=== PATIENT | female | born 1950 | race Native Hawaiian/Other Pacific Islander ===

== ENCOUNTER → 2019-06-12 | Outpatient (CLI) | payer MEDICARE, OTHER ==
[~2019-06-12] MED LIST: ALLO100T PO; AMLO10TA7 PO; CEPH250 PO; LOSA25TA41 PO; SIMV-260 PO; VALS40TA4 PO
[2019-06-12 12:30] LABS: CALCIUM, TOTAL 9.5 mg/dL (8.8-10.5); CHOL/HDL RATIO 2.6 (3.9-5.7); CREATININE 0.96 mg/dL (0.60-1.30); POTASSIUM 5.2 mmol/L (3.5-5.1)
[2019-06-12 12:40] LABS: HEMOGLOBIN A1C 5.7 % (4.5-6.2)
[2019-06-12 18:18] LABS: CREATININE,SERUM FOR CRCL 0.96 mg/dL (0.60-1.30)
== END | disposition home or self-care (01) ==
LOC: LABPV 08:22
PROVIDERS: ATTEND Internal Medicine Nephrology
DX: E83.52 Hypercalcemia (principal); N04.1 Nephrotic syndrome with focal and segmental glomerular lesions; R73.03 Prediabetes
CPT/HCPCS: 81050; 82575; 83036; 83970; 84156; 84300

== ENCOUNTER 2022-08-17 11:16 | Emergency (ER) | payer OTHER ==
[~2022-08-17] VITALS: Ht 154.9 cm; Wt 71.8 kg
[~2022-08-17 11:16] MED LIST changes: +ALLO-97 PO; -ALLO100T PO; +AMLO-258 PO; -AMLO10TA7 PO; +CEPH-556 PO; -CEPH250 PO; +LOSA-381 PO; -LOSA25TA41 PO
[2022-08-17 11:35] LABS: COVID AG,FIA SOURCE NASAL SWAB
[2022-08-17 12:06] LABS: INFLUENZA TYPE A NEGATIVE FOR TYPE A (NEGATIVE); INFLUENZA TYPE B NEGATIVE FOR TYPE B (NEGATIVE)
[2022-08-17 13:41] VITALS: BP 157/87
[2022-08-17] MEDS ORDERED: LOSA100T58 PO (13:43)
[2022-08-17] MEDS ORDERED: ALLO300T2 PO (13:43)
[2022-08-17] MEDS ORDERED: ALEN70TA80 PO (13:43)
[2022-08-17] MEDS ORDERED: OXYB5TAB20 PO (13:43)
[2022-08-17] MEDS ORDERED: SIMV10TA97 PO (13:43)
[2022-08-17] MEDS ORDERED: ALBUTEROL SULFATE HFA 90 MCG/PUFF 8 GM INHALER IH ONE (13:45)
== END 2022-08-17 14:01 | disposition home or self-care (01) ==
LOC: EMS 11:21
DX: J40 Bronchitis, not specified as acute or chronic (principal); I10 Essential (primary) hypertension; Z20.822 Contact with and (suspected) exposure to COVID-19
CPT/HCPCS: 71045; 87804; 94640; 99284; J3535

== ENCOUNTER 2022-11-28 12:48 | Emergency (ER) | payer OTHER ==
[~2022-11-28] VITALS: Ht 154.9 cm; Wt 71.8 kg
[~2022-11-28 12:48] MED LIST changes: +ALEN70TA80 PO; -ALLO-97 PO; +ALLO300T2 PO; -CEPH-556 PO; -LOSA-381 PO; +LOSA100T58 PO; +OXYB5TAB20 PO; -SIMV-260 PO; +SIMV10TA97 PO
[2022-11-28 15:01] LABS: BASOPHILS % (AUTO) 0.6 % (0.0-2.0); EOSINOPHILS % (AUTO) 7.3 % (1.0-6.0); HEMATOCRIT 36.5 % (36-46); HEMOGLOBIN 11.7 g/dL (12.0-16.0); LYMPHOCYTES # (AUTO) 2.6 K/uL (1.0-4.8); LYMPHOCYTES % (AUTO) 37.5 % (22.0-44.0); MEAN CORPUSCULAR HEMOGLOBIN 29.2 pg (26.0-34.0); MEAN CORPUSCULAR HGB CONC 31.9 G/dL (31.0-37.0); MEAN CORPUSCULAR VOLUME 92 fL (80-100); MONOCYTES # (AUTO) 0.5 K/uL (0.1-1.0); NEUTROPHILS # (AUTO) 3.3 K/uL (1.8-7.7); NEUTROPHILS % (AUTO) 47.6 % (40.0-70.0); PLATELET COUNT (AUTO) 243 K/uL (150-450); RED BLOOD CELL COUNT(AUTO) 3.99 MIL/uL (4.00-5.20); RED CELL DISTRIBUTION WIDTH 15.5 % (11.5-14.5)
[2022-11-28 15:09] LABS: CALCIUM, TOTAL 9.8 mg/dL (8.8-10.5); CREATININE 1.23 mg/dL (0.60-1.30); POTASSIUM 4.7 mmol/L (3.5-5.1)
[2022-11-28 15:18] LABS: BILIRUBIN,TOTAL 0.3 mg/dL (0.1-1.0); TOTAL PROTEIN, SERUM 8.5 g/dL (6.4-8.2)
[2022-11-28 15:54] LABS: APPEARANCE,URINE CLEAR (CLEAR); BILIRUBIN,URINE NEGATIVE (NEGATIVE); GLUCOSE, URINE (UA) NEGATIVE (NEGATIVE); KETONES,URINE NEGATIVE (NEGATIVE); LEUKOCYTE ESTERASE ,URINE TRACE (NEGATIVE); NITRATE,URINE NEGATIVE (NEGATIVE); OCCULT BLOOD,URINE NEGATIVE (NEGATIVE); PH,URINE 5.5 (5.0-8.0); PROTEIN,URINE TRACE mg/dL (NEGATIVE); SPECIFIC GRAVITIY, URINE 1.006 (1.003-1.030); UROBILINOGEN,URINE <=1.0 mg/dL (<=1.0)
[2022-11-28 16:31] LABS: BACTERIA,URINE Moderate /HPF (None Seen); RBC,URINE None Seen /HPF (0-2); WBC,URINE 0-2 /HPF (0-5)
[2022-11-28] MEDS ORDERED: KETOROLAC TROMETHAMINE 60 MG/2 ML VIAL IM ONE (17:15)
[2022-11-28] MEDS ORDERED: BACLOFEN 10 MG TABLET PO ONE (17:15)
[2022-11-28] MEDS ORDERED: ACETAMINOPHEN/CODEINE 300-30 MG TABLET PO ONE (17:15)
[2022-11-28 20:00] VITALS: BP 128/69
[2022-11-28] MEDS ORDERED: ACET-2080 PO (20:06)
[2022-11-28] MEDS ORDERED: BACL10TA PO (20:06)
[2022-11-28] MEDS ORDERED: IBUP-45 PO (20:06)
== END 2022-11-28 20:26 | disposition home or self-care (01) ==
LOC: EMS 12:48
DX: S39.012A Strain of muscle, fascia and tendon of lower back, initial encounter (principal); I10 Essential (primary) hypertension; X58.XXXA Exposure to other specified factors, initial encounter; Y93.89 Activity, other specified; Y92.89 Other specified places as the place of occurrence of the external cause; Y99.8 Other external cause status
CPT/HCPCS: 99284; 80053; 81001; 85025; 36415; 87086; 87186; 72100; 73503; 96372; J1885

== ENCOUNTER 2024-08-23 19:55 | Emergency (ER) | payer OTHER ==
[~2024-08-23] VITALS: Ht 152.4 cm; Wt 68.2 kg
[~2024-08-23 19:55] MED LIST changes: +ACET-2080 PO; +BACL10TA PO; +IBUP-45 PO; -LOSA100T58 PO; +LOSA100T59 PO
[2024-08-23] MEDS: LIDOCAINE 5% TRANSDERMAL PATCH TD ONE (22:52)
[2024-08-23] MEDS: KETOROLAC TROMETHAMINE 30 MG/ML VIAL IM ONE (22:52)
[2024-08-23 23:00] VITALS: BP 135/68; PULSE 89; RESP 16; TEMP 97.3; O2SAT 98
[2024-08-23 23:20] LABS: APPEARANCE,URINE CLEAR (CLEAR); BILIRUBIN,URINE NEGATIVE (NEGATIVE); COLOR,URINE COLORLESS (YELLOW); GLUCOSE, URINE (UA) NEGATIVE (NEGATIVE); KETONES,URINE NEGATIVE (NEGATIVE); LEUKOCYTE ESTERASE ,URINE NEGATIVE (NEGATIVE); NITRATE,URINE NEGATIVE (NEGATIVE); OCCULT BLOOD,URINE NEGATIVE (NEGATIVE); PH,URINE 5.5 (5.0-8.0); PROTEIN,URINE 30-70 mg/dL (NEGATIVE); SPECIFIC GRAVITIY, URINE 1.007 (1.003-1.030); UROBILINOGEN,URINE <=1.0 mg/dL (<=1.0)
[2024-08-23] MEDS ORDERED: IBUP-1506 PO (23:28)
[2024-08-23] MEDS ORDERED: BACL10TA PO (23:28)
== END 2024-08-24 05:11 | disposition home or self-care (01) ==
LOC: EMS 19:55
DX: M54.50 Low back pain, unspecified (principal); I10 Essential (primary) hypertension; Z79.899 Other long term (current) drug therapy
CPT/HCPCS: 99283; 81003; 96372; J1885